=== PATIENT | female | born 1970 | race Native Hawaiian/Other Pacific Islander ===

== ENCOUNTER 2022-07-12 19:12 | Emergency (ER) | payer OTHER ==
[~2022-07-12] VITALS: Ht 149.9 cm; Wt 55.8 kg
[2022-07-12 19:20] VITALS: BP 168/70; TEMP 98.7
== END 2022-07-12 23:00 | disposition home or self-care (01) ==
LOC: ED 19:12
DX: J40 Bronchitis, not specified as acute or chronic (principal); F17.210 Nicotine dependence, cigarettes, uncomplicated
CPT/HCPCS: 87502; 87651; 99282